=== PATIENT | male | born 1990 | race American Indian/Alaskan Native ===

== ENCOUNTER 2017-10-16 22:43 | Emergency (ER) | payer OTHER ==
[2017-10-16 23:15] VITALS: BP 136/89
[2017-10-16] MEDS ORDERED: MOTRIN PO ONE (23:30)
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
== END 2017-10-17 01:03 | disposition home or self-care (01) ==
LOC: ED 22:43
DX: R51 Headache (principal); V49.19XA Passenger injured in collision with other motor vehicles in nontraffic accident, initial encounter; Y93.89 Activity, other specified; Y99.8 Other external cause status; Y92.488 Other paved roadways as the place of occurrence of the external cause
CPT/HCPCS: 99282

== ENCOUNTER 2020-11-10 00:07 | Emergency (ER) | payer SELFPAY ==
[2020-11-10 00:38] VITALS: BP 135/91
== END 2020-11-10 00:44 | disposition left against medical advice (07) ==
LOC: ED 00:07
DX: R30.9 Painful micturition, unspecified (principal); Z53.21 Procedure and treatment not carried out due to patient leaving prior to being seen by health care provider

== ENCOUNTER 2021-04-19 17:07 | Emergency (ER) | payer SELFPAY ==
[2021-04-19 17:23] VITALS: BP 140/90
--- NOTE | 2021-04-19 18:17 | Emergency Department Report ---
HPI - General Chief Complaint: Dental/Oral PUI?: No Time Seen by Provider: 04/19/21 18:09 - HPI HPI: 31-year-old male who denies any significant past medical history presents to the ER today with complaints of swelling to his left upper lip. Patient states that he woke up with the lip swollen. He reports soreness to the lip. He denies any itching. He denies any apparent injury or trauma or bites. He denies any dental pain. He denies any HARITHA inhibitors. He denies any new meds, lotions, or any other new contacts. He reports no wheezing, difficulty breathing, fever or any additional symptoms at this time. ED Past Medical Hx - Past Medical History Previous Medical History?: No - Surgical History Past Surgical History?: No - Social History Smoking Status: Current Every Day Smoker Substance Use Type: Marijuana - Medications Home Medications: Home Medications Medication Instructions Recorded Confirmed Last Taken Type Cyclobenzaprine [Flexeril] 10 mg PO QHS PRN #10 tablet 10/17/17 Unknown Rx Acyclovir 400 mg PO Q6HR #40 tablet 04/19/21 Unknown Rx Ibuprofen [Motrin 600 MG tab] 600 mg PO Q8H PRN #30 tablet 04/19/21 Unknown Rx cephALEXin [Keflex] 500 mg PO Q8HR #21 cap 04/19/21 Unknown Rx ED Review of Systems ROS: Stated complaint: LIP SWOLLEN Other details as noted in HPI Comment: All other systems reviewed and negative Constitutional: denies: chills, fever Eyes: denies: eye pain, eye discharge, vision change ENT: other (Left upper lip swelling). denies: ear pain, throat pain Respiratory: denies: cough, shortness of breath, wheezing Cardiovascular: denies: chest pain, palpitations, edema, syncope, paroxysmal nocturnal dyspnea Endocrine: no symptoms reported Gastrointestinal: denies: abdominal pain, nausea, vomiting, diarrhea, co nstipation, hematemesis, melena, hematochezia Genitourinary: denies: urgency, dysuria, frequency, hematuria, discharge, testicular pain, testicular mass Musculoskeletal: denies: back pain, joint swelling, arthralgia Skin: denies: rash, lesions, change in color, change in hair/nails, pruritus Neurological: denies: headache, weakness, paresthesias, abnormal gait, vertigo Psychiatric: denies: anxiety, depression, auditory hallucinations, visual hallucinations, homicidal thoughts, suicidal thoughts Hematological/Lymphatic: denies: easy bleeding, easy bruising, swollen glands Physical Exam - Physical Exam Vital Signs: Vital Signs 04/19/21 17:19 Temperature 98.7 F Pulse Rate 96 H Respiratory 20 Rate Blood Pressure 140/90 [Right] O2 Sat by Pulse 97 Oximetry ED Course Vital Signs 04/19/21 17:19 Temperature 98.7 F Pulse Rate 96 H Respiratory 20 Rate Blood Pressure 140/90 [Right] O2 Sat by Pulse 97 Oximetry ED Medical Decision Making - Medical Decision Making 1844: Patient is upper lip swelling likely related to herpes labialis. Be treated antivirals as well as antibiotics to cover for any possible secondary bacterial infection. He has no oral involvement. No apparent dental abscess. He has no drooling or trismus and his airway appears to be patent and he is tolerating secretions well. No stridor on exam or any signs of respiratory distress. He is not toxic or ill-appearing. He is neurologically intact with a normal gait. Discussed suspected diagnosis and treatment plan with patient. He expressed understanding agree with plan. Patient was stable at time of discharge. Critical care attestation.: If time is entered above; I have spent that time in minutes in the direct care of this critically ill patient, excluding procedure time. ED Disposition Clinical Impression: Herpes labialis Disposition: 01 HOME / SELF CARE / HOMELESS Is pt being admited?: No Does the pt Need Aspirin: No Condition: Stable Instructions: Cold Sore Additional Instructions: Recommend taking the acyclovir as prescribed. Also take the Keflex, to cover for any possible secondary bacterial infection. Keep the area clean with soap and water. Do not pick the area. You can apply heat over the area. Take ibup rofen to help with any pain. Follow-up with your PCP. Return to the ER if anything worsens. Prescriptions: Acyclovir 400 mg PO Q6HR #40 tablet cephALEXin [Keflex] 500 mg PO Q8HR #21 cap Ibuprofen [Motrin 600 MG tab] 600 mg PO Q8H PRN #30 tablet PRN Reason: Pain Referrals: ALVARADO VACA MD [Staff Physician] - 3-5 Days Time of Disposition: 18:41 ED Physical Exam - General Limitations: No Limitations General appearance: alert, in no apparent distress - Head Head exam: Present: atraumatic, normocephalic, normal inspection - Eye Eye exam: Present: normal appearance, PERRL, EOMI Pupils: Present: normal accommodation - ENT ENT exam: Present: normal exam, mucous membranes moist, other (Mild to moderate swelling left upper lip; there is few small vesicular areas noted to left upper lip inside of his mustache and there is some mild induration around it. No fluctuance. No cellulitis. No drainage.) - Expanded ENT Exam Expanded Mouth exam: Present: normal external inspection Teeth exam: Absent: dental tenderness # Throat exam: Positive: normal inspection - Neck Neck exam: Present: normal inspection. Absent: full ROM - Respiratory Respiratory exam: Absent: respiratory distress - Cardiovascular Cardiovascular Exam: Present: regular rate - Neurological Exam Neurological exam: Present: alert, oriented X3, CN II-XII intact, normal gait - Psychiatric Psychiatric exam: Present: normal affect, normal mood - Skin Skin exam: Present: intact
== END 2021-04-19 18:53 | disposition home or self-care (01) ==
LOC: ED 17:07
DX: B00.1 Herpesviral vesicular dermatitis (principal); F17.200 Nicotine dependence, unspecified, uncomplicated; F12.90 Cannabis use, unspecified, uncomplicated
CPT/HCPCS: 99282